=== PATIENT | female | born 1955 | race Caucasian/White ===

== ENCOUNTER → 2018-02-23 17:46 | Outpatient (CLI) | payer OTHER, SELFPAY ==
--- NOTE | 2018-02-23 17:51 | DI.MRI.S_ITS ---
PROCEDURE: MR KNEE RT WO CON INDICATIONS: RIGHHT KNEE INSTABILITY POST FALL TECHNIQUE: Noncontrast sagittal PD fast spin echo and T2 fast spin echo with fat saturation, sagittal 3-D FLASH with fat saturation; coronal T1 spin echo and PD fast spin echo with fat saturation, and axial PD fast spin echo with fat saturation through the knee. COMPARISON: None. FINDINGS: Image quality: Diagnostic. Bones and joint: There is no acute fracture or dislocation. No suspicious osseous lesions are evident. There is a moderate-sized knee joint effusion without significant fluid extending into a Randle's cyst. There is heterogeneity of the hyaline articular cartilage within the patellofemoral and lateral tibiofemoral compartments. No large full thickness defects of the hyaline articular cartilage are evident. Cruciate ligaments: There is a moderate to high-grade intrasubstance longitudinal split tear evident involving the anterior cruciate ligament. A complete tear is not evident. The posterior cruciate ligament is intact. Menisci: There is a moderate-sized ganglion cyst identified on the posterior margin of the medial compartment, which measures approximately 1.6 x 1.3 cm and is noted to abut the posterior horn of the medial meniscus. There is a complex tear involving the body and posterior horn of the medial meniscus. Thinning of the posterior horn of the medial meniscus is evident. There is an undersurface tear identified at the junction of the body and posterior horn with a small to moderate-sized undersurface flap extending into the adjacent medial gutter (image 20, series 6). Additional blunting on the free edge of the body of the medial meniscus is present. There is partial thickness tearing involving the posterior root of the medial meniscus. There is also partial-thickness tearing evident involving the anterior root of the lateral meniscus. The lateral meniscus is otherwise within normal limits. Medial structures: The medial collateral ligament is intact. Mild edema about the medial collateral ligament is noted. The semimembranosus tendon insertion is intact. The imaged portions of the pes anserinus tendons are unremarkable. No significant fluid is contained within the pes anserinus bursa. Lateral structures: The popliteal tendon is intact. The lateral collateral ligament proper (fibular collateral ligament) and the proximal tibiofibular ligaments are intact. The distal aspect of the biceps femoris tendon and the iliotibial band are intact. Anterior structures: The quadriceps and patellar tendons are intact. There is no significant edema in the infrapatellar fat pad. IMPRESSION: 1. Complex medial meniscal tear with a small to moderate-sized undersurface flap tear extending into the adjacent gutter and an associated prominent parameniscal cyst. 2. Moderate to high-grade partial-thickness tear of the anterior cruciate ligament. 3. Medial collateral ligament sprain. 4. Low-grade partial-thickness tear involving the anterior attachment of the lateral meniscus. 5. Moderate-sized knee joint effusion. Dictated by: Morgan Mcmullen M.D. on 02/24/2018 at 8:48 Approved by: Morgan Mcmullen M.D. on 02/24/2018 at 8:52
== END ==
PROVIDERS: Visit Provider Nurse Practitioner Family
DX: M23.51 Chronic instability of knee, right knee (principal); S83.231A Complex tear of medial meniscus, current injury, right knee, initial encounter; S83.281A Other tear of lateral meniscus, current injury, right knee, initial encounter; M25.461 Effusion, right knee
CPT/HCPCS: 73721